=== PATIENT | male | born 1990 | race Caucasian/White ===

== ENCOUNTER 2018-11-12 18:31 | Inpatient (IN) | payer OTHER ==
[~2018-11-12] VITALS: Ht 182.9 cm; Wt 102.1 kg
--- NOTE | 2018-11-12 20:30 | NUR ---
Pre-admission assessment Patient is a 28-year old, male, seen at intake, AAOx4, no SOB but noted with anxiety, gross tremors, sweating and flushed skin. Patient's breath smells of alcohol. He verbalized that his last drink was at 1500 today but he already feels the withdrawal symptoms. Discussed with patient admission policies of the unit. Patient is coherent and able to respond to questions appropriately. He is on wheelchair because he ambulates with steady gait. Pt reports that he drinks Gin daily and uses Cocaine daily as well. Vital signs taken and as follows: QY=907/79, P=138, O2 sat on RA=97%, RR=20, T=98.7. Pt verbalized instructions and teachings regarding disposal of narcotic and other controlled home meds, unit protocols such as taking of vital signs Q4H and handling and disposal of contraband.
[2018-11-12] MEDS ORDERED: MIRALAX 17 GM POWD.PACK PO PRN (21:15)
[2018-11-12] MEDS ORDERED: LORAZEPAM 2 MG/1 ML VIAL IM PRN (21:15)
[2018-11-12] MEDS ORDERED: MAGNESIUM HYDROXIDE 30 ML LIQUID UDC PO PRN (21:15)
[2018-11-12] MEDS ORDERED: ONDANSETRON ODT 4 MG TAB.RAPDIS SL PRN (21:15)
[2018-11-12] MEDS ORDERED: THIAMINE HCL 200 MG/2 ML VIAL IM ONE (21:15)
[2018-11-12] MEDS ORDERED: ACETAMINOPHEN 325 MG TABLET PO PRN (21:15)
[2018-11-12] MEDS ORDERED: ONDANSETRON 4 MG/2 ML VIAL IM PRN (21:15)
[2018-11-12] MEDS ORDERED: LOPERAMIDE HCL 2 MG CAPSULE PO PRN ×2 (21:15)
[2018-11-12] MEDS ORDERED: DIAZEPAM 5 MG TABLET PO PRN (21:15)
[2018-11-12] MEDS ORDERED: diphenhydrAMINE 50 MG CAPSULE PO PRN (21:15)
[2018-11-12 21:30] VITALS: BP 143/79
--- NOTE | 2018-11-12 21:40 | NUR ---
Admission Note Patient is a 28-year-old, male, arrived to the floor at 2056 to be admitted for medically supervised withdrawal from Alcohol (Gin). Patient also verbalized using Cocaine daily as well history of drinking Opium tea (stopped 10/18/2018) and smoking Marijuana pens (stopped 10/18/2018). Per patient, he lives in an apartment by himself at [place], [place]. He is being supported by his parents. He stated that he has a sponsor and her name is Eugenia Hollis. The patient appears intoxicated, his breath smells of alcohol, with last drink at 1500 today. He is noted to have flushed skin, anxiety (pulse rate of 138), sweating and has gross tremors. He ambulates via wheelchair at the moment. He states that when he is withdrawing from Alcohol, he loses muscle coordination especially on the bilateral lower extremities. Patient is noted to be disheveled, unkempt and verbalized feeling depressed, Im unemployed, my girlfriend left me a year ago and I dont have anything going on with my life. He denies suicidal nor homicidal ideation. Pt is AAOx4, and when asked for his reason for detox, he verbalized: "My life is falling apart and I think I'm sick." Patient explained that he fell at his apartment a couple of days ago and he woke up with bruises on the right arm and purplish discoloration on the right eye. No open skin noted. Substance Use: 1) Gin-Patient started drinking at 15 due to peer influence. Per patient, his first drink was beer. For the past 1 week he has been drinking 1500 ml PO daily and before that he was drinking 375 ml PO daily x 2 years. Last drink was today (11/12/2018) at 1500 and he drank 1750 ml of Gin. 2) Opium Tea-Patient started ordering this substance online in 2013 and since then has been drinking this substance of unknown amount daily until he stopped on 10/18/2018. When asked on why he started using this substance, he stated, I dont really know. I think I heard from some friends and decided to try it too. When asked why he decided to stop, he said, No reason. One day I just decided to quit. 3) Cocaine-Patient started using in 2015 upon the influence of friends. Since he started using, he stated that he has been snorting (or via nasal insufflation) 1.75 gm daily. His last use today (11/12/2018) at 1200. He snorted 1.75 gm. 4) Marijuana Pen-Patient started using Marijuana at age 15 but has only started using Marijuana Pen in the last 4 years. He stated that he does not know the amount that he smokes daily. He stopped using on 10/18/2018. Patient denies using other substances besides the ones mentioned above. He stated that he was sober for 5 years between 2008 to 2013. He explained that his relapse in 2013 was due to personal and family issues. The patient states that withdrawal symptoms include anxiety, agitation, sweating, restlessness, gross tremors, hot flushes, chills, flushed skin, nausea, vomiting, loss of muscle coordination on the bilateral lower extremities, diarrhea and insomnia. He reports no known allergies and is on a regular diet. He wishes to be Full Code. Patient denies seizure history. Patient's major supporters for his goal to achieve sobriety are his parents, sponsor and closest friends. Patient also stated: ""I marvin feel like my body is shutting down. I don't want to wait until it's too late." Patient reports that he has been to two treatment centers in the past. The first was in [facility] and he finished the entire 1 year course between 2008 to 2009. Before this, he was in [facility] in [place], [place] and completed the 30-day course. He could not recall the exact year when he was in [facility]. Also, he could not recall any other treatment or detox centers that hes been to beside these two. Per patient, the reason why he wants to be in detox is because I cannot do it alone. I get these shakes and anxiety and I just go back to drinking. Vital signs are taken and as follows: BP: 143/79, HR: 138, RR: 20, SpO2: 96%, Temp: 98.4 and with no c/o pain. Pulse is palpable and regular. Respirations are even and unlabored. Lung sounds clear. Bowel sounds hypoactive x4 quadrants. Last bowel movement was on 11/11/2018. Per patient, he is often constipated and that bowel movement is about every 3 days. Skin is intact. Height is 60", 225 lbs per standing scale. He smokes "about half a park to 1 pack" of cigarettes daily. Patient does not recall the name of his PCP and he denies having a Psychiatrist. As for his psych history, patient stated that he was not diagnosed with Anxiety and Depression but he thinks that he has both. Patient denies any history of suicide attempt. Patient's medical history are Chiari Type 1 Malformation where he underwent surgeryPosterior Fossa Decompression at age 15, Appendicitis where he also underwent Appendectomy in 2017 and Multiple Blackouts with the last one earlier today when he woke up without recollection of what happened the previous night. Patient denies taking any home medications. Educated patient about plan of care including detox, group therapy, individual therapy, and discharge planning. Patient was also educated regarding unit rules and policies. Encouraged patient to be open and honest and verbalized support for patient in his recovery. Patient wants to go to a treatment center or [facility] after discharge. CIWA=15. MD made aware. Will continue to monitor. Addendum: 11/13/18 at 0555 by BALBINA PATINO RN Additional information: Another factor in patient's motivation to get sober is that he wants to finish college. He plans to enroll this year and complete his unfinished History course at [facility] [employer] [facility].
[2018-11-12 21:44] LABS: BASOPHILS # (AUTO) 0.1 K/uL (0.0-8.0); BASOPHILS % (AUTO) 0.8 % (0.0-2.0); HEMATOCRIT 51.8 % (36.7-47.1); HEMOGLOBIN 18.2 g/dL (12.5-16.3); LYMPHOCYTES # (AUTO) 2.3 K/uL (20.0-40.0); LYMPHOCYTES % (AUTO) 26.1 % (20.5-51.5); MEAN CORPUSCULAR HEMOGLOBIN 31.2 uug (23.8-33.4); MEAN CORPUSCULAR HGB CONC 35 g/dL (32.5-36.3); MEAN CORPUSCULAR VOLUME 88.9 fL (73.0-96.2); MONOCYTES # (AUTO) 0.9 K/uL (2.0-10.0); MONOCYTES % (AUTO) 10.1 % (0.0-11.0); NEUTROPHILS # (AUTO) 5.6 K/uL (1.8-8.9); PLATELET COUNT (AUTO) 286 K/uL (152-348); RED BLOOD CELL COUNT(AUTO) 5.82 MIL/uL (4.06-5.63)
[2018-11-12 21:52] LABS: BILIRUBIN,TOTAL 0.8 mg/dL (0.2-1.0); MAGNESIUM 2.2 mg/dL (1.8-2.4); POTASSIUM 3.3 mmol/L (3.5-5.1); TOTAL PROTEIN, SERUM 8.7 g/dL (6.4-8.2)
[2018-11-12] MEDS: DIAZEPAM 10 MG TABLET PO PRN (21:55)
[2018-11-12] MEDS: CLONIDINE HCL 0.1 MG TABLET PO PRN (21:55)
--- NOTE | 2018-11-12 21:57 | NUR ---
PRN Clonidine and Valium Patient is anxious, tremulous, irritable, flushed and sweaty. He c/o hot flushes. GS=607/91, ffina=688. CIWA=15. Administered Clonidine 0.1 mg PO PRN and Valium 10 mg PO PRN. Will reassess.
[2018-11-12] MEDS ORDERED: POTASSIUM CHLORIDE 20 MEQ TAB.PRT.SR PO ONE (22:15)
[2018-11-12 22:21] LABS: THYROID STIMULATING HORMONE 1.573 mIU/mL (0.358-3.740)
[2018-11-12 22:39] LABS: *AMPHETAMINE, URINE NEGATIVE (NEGATIVE); *BARBITURATE, URINE NEGATIVE (NEGATIVE); *CANNABINOID, URINE POSITIVE (NEGATIVE); *COCCAINE, URINE POSITIVE (NEGATIVE); *OPIATE, URINE NEGATIVE (NEGATIVE); *PHENCYCLIDINE SCREEN,URINE NEGATIVE (NEGATIVE)
--- NOTE | 2018-11-12 22:57 | NUR ---
Clonidine and Valium reassess Patient's pulse=97, he verbalized feeling less anxious but continues to have gross tremors and is flushed. CIWA=12.
[2018-11-12] MEDS ORDERED: TRAZODONE 50 MG TABLET PO ONE (23:00)
[2018-11-13] VITALS: BP 134/81
[2018-11-13] MEDS: DIAZEPAM 10 MG TABLET PO PRN (02:05)
--- NOTE | 2018-11-13 02:05 | NUR ---
PRN Valium Patient noted to be increasingly anxious, with gross tremors, sweats and flushed skin. CIWA=14. Administered Valium 10 mg PO PRN. Will reassess.
[2018-11-13] MEDS ORDERED: DIAZEPAM 10 MG TABLET PO PRN (02:30)
[2018-11-13] MEDS ORDERED: DIAZEPAM 10 MG TABLET PO ONE (03:00)
--- NOTE | 2018-11-13 03:05 | NUR ---
Valium reassess and one-time Valium Patient continues to feel anxious and his tremors have worsened. Patient verbalized that the Valium administered was not effective. He continues to be sweaty, flushed and observed to be restless and getting easily agitated. CIWA=18. Dr. Spivey contacted and he ordered one-time Valium 20 mg PO. To be administered. Addendum: 11/13/18 at 0318 by BALBINA PATINO RN Additional information: Patient's ocucg=[id number] Addendum: 11/13/18 at 0321 by BALBINA PATINO RN MD also ordered EKG.
[2018-11-13 04:00] VITALS: BP 118/63
--- NOTE | 2018-11-13 04:32 | NUR ---
PRN MOM Patient c/o feeling constipated. Last BM was 11/11/2018 in the morning. With hypoactive bowel sounds but patient verbalized having flatus. Administered MOM 30 ml. Will reassess.
--- NOTE | 2018-11-13 05:41 | NUR ---
MOM reassess No bowel movement at this time.
--- NOTE | 2018-11-13 06:30 | NUR ---
PRN Valium Patient is noted to be very anxious, with gross tremors, is sweating, flushed and verbalized, "I really don't feel good." Patient is also observed to be restless. Administered Valium 20 mg PO PRN. CIWA=18. Will reassess.
--- NOTE | 2018-11-13 07:19 | NUR ---
End of Shift Patient continues to be anxious, withdrawn and flushed. He c/o intermittent nausea and is noted to have gross tremors. He also verbalized experiencing episodes of hot flushes and chills. PRN Valium and Clonidine were administered. Last PRN Valium was administered at 0630. He is disheveled, unkempt and has strong body odor. Encouraged patient to take a shower this morning. No bowel movement until this time since administration of MOM. Fall, universal, seizure and safety prec in place. Call light within reach. Last CIWA=18 and has not slept since admission. Endorsed to AM shift nurse for continuity of care and to reassess effectiveness of PRN Valium administered at 0630.
--- NOTE | 2018-11-13 07:30 | NUR ---
Start of Shift Notes/Re-assessment: Valium Endorsement received from night nurse. Patient is a 28 year old male admitted for ETOH withdrawal who will be starting his 5-day Valium taper to manage his withdrawal symptoms. Per night nurse, patient received a total of 60 mg of Valium during the night, PRN Clonidine and MOM was given. Last CIWA 18 and has not slept. Patient was received in his room. He appears disheveled with worried facial expression, he is noted to be diaphoretic, with facial flushing and gross tremors noted to his BUE. Unable to hold a water bottle steadily. He is currently complaining of a 5/10 headache and is complaining of light sensitivity. CIWA 18 at this time. Valium was given at 0630 but ineffective. Educated patient on his current plan of care for the day and his medication regimen. Encouraged oral fluid intake and encouraged group participation to learn new skills to prevent relapse. All needs met and attended. Will continue to monitor closely.
[2018-11-13 08:00] VITALS: BP 156/92
[2018-11-13] MEDS: FOLIC ACID 1 MG TABLET PO SCH (08:15)
[2018-11-13] MEDS: THIAMINE HCL 100 MG TABLET PO SCH (08:15)
[2018-11-13] MEDS: IBUPROFEN 600 MG TABLET PO PRN ×2 (08:15→22:47)
[2018-11-13] MEDS: MULTIVITAMINS,THERAPEUTIC TABLET PO SCH (08:15)
[2018-11-13] MEDS: CLONIDINE HCL 0.1 MG TABLET PO PRN ×2 (08:15→14:02)
--- NOTE | 2018-11-13 08:15 | NUR ---
Clonidine 0.1mg/Motrin 600 mg PO: Patient noted with sweats, anxiety, agitation. BP 156/95, Pulse 117. He is noted with gross tremors to BUE and complains of 5/10 headache. Medicated patient with Clonidine 0.1mg PO and Motrin 600 mg PO as ordered. Will monitor for effectiveness.
[2018-11-13] MEDS: DIAZEPAM 10 MG TABLET PO SCH ×3 (08:16→20:53)
[2018-11-13] MEDS ORDERED: TUBERCULIN,PURIF.PROT.DERIV. 5 TU/0.1 ML TEST ID ONE (09:00)
[2018-11-13] MEDS ORDERED: 5 DAY TAPER VALIUM-SERENITY PROTOCOL PO PRN (09:00)
--- NOTE | 2018-11-13 09:15 | NUR ---
Re-assessment: Clonidine/Motrin Patient seen laying in bed. He continues to be tremulous, flushed with intermittent perspiration. He states "It helped a little bit." He rates his headache a 2 out of 10 at this time. He says "I think I'm going to try to sleep for a bit." PRN Clonidine and Motrin effective.
[2018-11-13] MEDS: HYDROXYZINE PAMOATE 25 MG CAPSULE PO PRN (10:33)
--- NOTE | 2018-11-13 10:33 | NUR ---
Vistaril 50 mg PO given: Patient noted with complain of anxiety. He is noted to be restless and complains of not being able to sleep. Caffeine intake discouraged. Non-pharmacological interventions provided but ineffective. Medicated patient with Vistaril 50 mg PO as ordered. Will monitor for effectiveness.
--- NOTE | 2018-11-13 11:33 | NUR ---
Re-assessment: Vistaril Patient verbalizes mild relief from anxiety. PRN Vistaril effective.
[2018-11-13 12:00] VITALS: BP 129/70
--- NOTE | 2018-11-13 12:22 | NUR ---
Therapist prompted client to attend all group therapy sessions.
--- NOTE | 2018-11-13 14:02 | NUR ---
Clonidine 0.1mg PO given: Patient noted with complains of increased anxiety, tremulous on BUE and complains of intermittent perspiration. He is noted to appear flushed. Medicated patient with Clonidine 0.1mg PO as ordered. BP 129/60, Pulse 93. Will monitor for effectiveness.
--- NOTE | 2018-11-13 15:02 | NUR ---
Re-assessment: Clonidine Patient verbalizes no relief from anxiety. He states "It doesn't work. Why can't I get more Valium?" Educated patient on the scheduled Valium doses for today. He complains of increased anxiety and not being able to sleep during the day. Will notify MD Pop (psych).
--- NOTE | 2018-11-13 15:15 | NUR ---
Psych Communication: Dr. Pop made aware of patient's behavior and complains of anxiety and inability to sleep. New orders received. Orders noted and carried out.
[2018-11-13] MEDS: QUETIAPINE FUMARATE 25 MG TABLET PO PRN (15:31)
--- NOTE | 2018-11-13 15:31 | NUR ---
Seroquel 25 mg PO given: Patient noted with complain of increased anxiety and appears agitated. Non-pharmacological interventions provided but ineffective. Medicated patient with Seroquel 25 mg PO as ordered. Will monitor for effectiveness.
[2018-11-13 16:00] VITALS: BP 141/70
--- NOTE | 2018-11-13 16:31 | NUR ---
Re-assessment: Seroquel Patient verbalizes mild relief from anxiety and agitation. PRN Seroquel was effective.
--- NOTE | 2018-11-13 19:05 | NUR ---
End of Shift Notes: Patient initiated his 5-day Valium taper today as ordered. No adverse reactions noted. VS monitored closely. No significant abnormalities noted. Withdrawal symptoms were closely monitored. Initial CIWA 18, patient presented with gross tremors, anxiety, agitation, restlessness, diaphoresis, anhedonia, worried facial expression, light sensitivity and generalized discomfort. Medicated patient with Clonidine and Motrin at 0815, Vistaril 50 mg at 1033, Clonidine at 1402 and Seroquel 25 mg PO at 1531 with help after 1 hour. Last CIWA 14. Patient verbalizes that Valium has been effective in reducing his withdrawal symptoms. Patient presents with med seeking behavior. Asking for more Valium than currently ordered. He appears to be fixated on how much Valium he is getting and states I can get a total of 100 mg of Valium and Ill be OK. Education provided and discouraged med seeking behavior. Unable to participate in group and activities due to his withdrawal symptoms. Appetite fair. All needs met and attended. Will continue to monitor closely.
--- NOTE | 2018-11-13 19:30 | NUR ---
START OF SHIFT Received patient awake, alert, and oriented sitting up in bed watching TV. Patient is a 28 year old male admitted for medically supervised detox from ETOH with secondary diagnoses of Chiari Type 1 malformation, posterior fossa decompression, appendicitis with appendectomy in 2017, anxiety and depression. Patient denies a seizure history, but admits to having blackouts. Per endorsement, patient started on a 5 day Valium taper this morning. Patient was given Clonidine, Motrin, Vistaril, and Seroquel by the AM shift nurse. Upon assessment, patient stated he was feeling anxious, had a migraine, and nauseous. Patient is also noted to be diaphoretic and with a runny nose and productive cough. Last CIWA score is 14. HOB and bilateral side rails raised. All safety measures in place. Bed is in a low position with wheels locked. Call light is functional and within reach. Will continue to monitor.
[2018-11-13 20:18] VITALS: BP 140/94
[2018-11-13] MEDS ORDERED: QUETIAPINE FUMARATE 25 MG TABLET PO SCH (21:00)
--- NOTE | 2018-11-13 22:47 | NUR ---
PRN Motrin Patient is presenting with a headache of pain 05/13. Administered PRN Motrin 600mg, pt tolerated well and education pt to increase fluids. Safety measures in place and will continue to monitor.
--- NOTE | 2018-11-13 23:47 | NUR ---
PRN MOTRIN REASSESSMENT Patient stated his headache pain decreased to a 3 out of 10 which is manageable for him. PRN Motrin noted to be effective. Will continue to monitor.
[2018-11-14] VITALS: BP 145/100
[2018-11-14] MEDS: HYDROXYZINE PAMOATE 25 MG CAPSULE PO PRN ×4 (00:32→23:16)
--- NOTE | 2018-11-14 00:32 | NUR ---
PRN VISTARIL ADMINISTRATION Patient is noted with significant levels of generalized anxiety. PRN Vistaril 50 mg given per MD orders and patient request. Will continue to monitor and assess for effectiveness.
--- NOTE | 2018-11-14 01:32 | NUR ---
PRN VISTARIL REASSESSMENT Patient is noted lying in bed with eyes closed and even, unlabored respirations. No reports or signs/symptoms of anxiety noted. PRN med Vistaril noted to be effective. Will continue to monitor.
--- NOTE | 2018-11-14 04:00 | NUR ---
VITAL SIGNS REFUSED Patient noted lying in bed with eyes closed and even, unlabored respirations. Vital signs refused. HOB flat and bilateral side rails raised. Call light is functional and within reach. All safety measures in place. Will continue to monitor.
[2018-11-14 07:06] LABS: HEPATITIS B SURFACE AG Negative (Negative)
[2018-11-14 07:07] LABS: BASOPHILS % (AUTO) 0.5 % (0.0-2.0); EOSINOPHILS # (AUTO) 0.1 K/uL (0.0-0.7); EOSINOPHILS % (AUTO) 1.1 % (0.0-7.0); HEMATOCRIT 43.9 % (36.7-47.1); HEMOGLOBIN 15.3 g/dL (12.5-16.3); LYMPHOCYTES % (AUTO) 35.1 % (20.5-51.5); MEAN CORPUSCULAR HEMOGLOBIN 31.3 uug (23.8-33.4); MEAN CORPUSCULAR HGB CONC 35 g/dL (32.5-36.3); MONOCYTES # (AUTO) 0.4 K/uL (2.0-10.0); MONOCYTES % (AUTO) 7.6 % (0.0-11.0); NEUTROPHILS # (AUTO) 3.1 K/uL (1.8-8.9); NEUTROPHILS % (AUTO) 55.7 % (38.5-71.5); PLATELET COUNT (AUTO) 149 K/uL (152-348); RED BLOOD CELL COUNT(AUTO) 4.88 MIL/uL (4.06-5.63); WHITE BLOOD COUNT (AUTO) 5.6 K/uL (3.6-10.2)
[2018-11-14 07:15] LABS: BILIRUBIN,TOTAL 0.8 mg/dL (0.2-1.0); CREATININE 0.9 mg/dL (0.6-1.3); MAGNESIUM 2.4 mg/dL (1.8-2.4); POTASSIUM 3.2 mmol/L (3.5-5.1); TOTAL PROTEIN, SERUM 6.9 g/dL (6.4-8.2)
--- NOTE | 2018-11-14 07:20 | NUR ---
END OF SHIFT Patient is noted lying in bed with eyes closed and even, unlabored respirations. Patient is a 28 year old male admitted for medically supervised detox from ETOH with secondary diagnoses of Chiari Type 1 malformation, posterior fossa decompression, appendicitis with appendectomy in 2017, anxiety and depression. During the shift, the patient reported having a headache at a level of 7 out of 10 and anxiety. Patient was given PRN meds Motrin and Vistaril and were effective. Patient slept for 7 hours during the night with a few episodes of difficulty staying asleep. Last CIWA score is 12 taken at 0000. HOB is flat and bilateral side rails raised. Call light is functional and within reach. All safety measures are in place. Bed is in a low position with wheels locked. Endorsed to oncoming AM nurse.
--- NOTE | 2018-11-14 07:30 | NUR ---
START OF SHIFT Pt 28 y/o male admitted for etoh withdrawal. Pt received in room on bed awake watching television. Pt alert and oriented to name, place, and time. Perrla. Skin warm and moist to touch. Respirations even and unlabored. Anxious and restless. Pressured speech. Fidgety. Bilateral hand tremors noted. Irritable. Appears disheveled. Clothes scattered throughout the room. Encouraged to maintain hygiene. It was reported that pt slept for 7 hours last night. Pt is on a 5 day valium taper and is on day 1. Bed on lowest position with side rails x2 up for safety. Call light within reach.
[2018-11-14 08:00] VITALS: BP 168/98
[2018-11-14] MEDS: THIAMINE HCL 100 MG TABLET PO SCH (08:31)
[2018-11-14] MEDS: MULTIVITAMINS,THERAPEUTIC TABLET PO SCH (08:32)
[2018-11-14] MEDS: FOLIC ACID 1 MG TABLET PO SCH (08:32)
[2018-11-14] MEDS: CLONIDINE HCL 0.1 MG TABLET PO PRN (08:32)
[2018-11-14] MEDS: DIAZEPAM 5 MG TABLET PO SCH ×4 (08:32→21:09)
--- NOTE | 2018-11-14 08:35 | NUR ---
PRN CATAPRES VISTARIL bp= 168/98. Catapres po prn per MD order given. Anxious and restless. Vistaril po prn per MD order given.
--- NOTE | 2018-11-14 09:35 | NUR ---
PRN CATAPRES VISTARIL EVAL bp= 140/82 Pt states medication effective.
--- NOTE | 2018-11-14 09:55 | NUR ---
Therapist prompted client to attend group therapy.
[2018-11-14] MEDS ORDERED: POTASSIUM CHLORIDE 20 MEQ TAB.PRT.SR PO ONE (11:30)
[2018-11-14 12:00] VITALS: BP 120/76
[2018-11-14 16:00] VITALS: BP 118/80
--- NOTE | 2018-11-14 16:49 | NUR ---
PRN VISTARIL Pt states feels anxious. Vistaril po prn per MD order given.
--- NOTE | 2018-11-14 17:49 | NUR ---
PRN VISTARIL EVAL Pt states medication effective.
[2018-11-14 18:17] LABS: CREATININE 1.1 mg/dL (0.6-1.3); POTASSIUM 3.5 mmol/L (3.5-5.1)
--- NOTE | 2018-11-14 19:16 | NUR ---
END OF SHIFT Pt 28 y/o male admitted for alcohol withdrawal. Pt alert and oriented to name, place, and time. Perrla. Skin warm and moist to touch. Respirations even and unlabored. Appears disheveled. Food wrappings scattered throughout the room. Encouraged to maintain hygiene. Anxious and restless. Irritable. Pressured speech. Fidgety. Complaints of generalized discomfort. Pt attended group activity today. Pt is on a 5 day valium taper and is on day 2. Bed on lowest position with side rails x2 up for safety. Call light within reach.
--- NOTE | 2018-11-14 19:30 | NUR ---
START OF SHIFT Received patient awake, alert, and oriented x4 attending group therapy. Patient is a 28 year old male admitted for medically supervised detox from ETOH with secondary diagnoses of Chiari Type 1 malformation, posterior fossa decompression, appendicitis with appendectomy in 2017, anxiety and depression. Patient denies a seizure history, but admits to having blackouts. Per endorsement, patient reported having anxiety and was noted to be hypertensive at some time during the shift and was given Vistaril 2 times and Clonidine. These PRNs were noted to be effective. Potassium was replaced. Upon assessment, patient was noted with anxiety, tremors, and a 7 out of 10 headache. PRN pain med to be given. Last CIWA score is 10. Bed is in a low position with wheels locked. Call light is functional and within reach. All safety measures in place. Will continue to monitor.
[2018-11-14 20:00] VITALS: BP 148/102
[2018-11-14] MEDS: QUETIAPINE FUMARATE 25 MG TABLET PO SCH (21:09)
[2018-11-14] MEDS: IBUPROFEN 600 MG TABLET PO PRN (21:09)
--- NOTE | 2018-11-14 21:09 | NUR ---
PRN MOTRIN ADMINISTRATION Patient is noted with a 7 out of 10 headache originating from the back of his head. PRN Motrin given per MD orders and patient request. Will continue to monitor and reassess for effectiveness.
--- NOTE | 2018-11-14 22:09 | NUR ---
PRN MOTRIN REASSESSMENT Patient reports a significant decrease in pain levels r/t headache and pain is now at a 2 out of 10. PRN Motrin is noted to be effective. Will continue to monitor.
--- NOTE | 2018-11-14 23:16 | NUR ---
PRN VISTARIL ADMINISTRATION Patient is noted with anxiety, restlessness, difficulty sleeping, and fine tremors. PRN Vistaril 50 mg given per MD orders and patient request. Will continue to monitor and assess for effectiveness.
[2018-11-15] VITALS: BP 138/88
--- NOTE | 2018-11-15 00:16 | NUR ---
PRN VISTARIL REASSESSMENT Patient reports having decreased levels of anxiety, but not complete relief. PRN Vistaril is noted to be effective. Will continue to monitor.
[2018-11-15] MEDS: MAG HYDROX/AL HYDROX/SIMETH 30 ML LIQUID UDC PO PRN ×2 (02:58→20:03)
--- NOTE | 2018-11-15 02:58 | NUR ---
PRN MAALOX ADMINISTRATION Patient reports having heartburn and requests PRN med. PRN Maalox 30 mL given per MD orders and patient request. Will continue to monitor and assess for effectiveness.
--- NOTE | 2018-11-15 03:58 | NUR ---
PRN MAALOX REASSESSMENT Patient states he is experiencing relief from symptoms of heartburn and indigestion. Patient encouraged to increase fluid intake. PRN Maalox noted to be effective. Will continue to monitor.
[2018-11-15 04:00] VITALS: BP 153/87
[2018-11-15] MEDS: CLONIDINE HCL 0.1 MG TABLET PO PRN ×3 (04:23→23:25)
--- NOTE | 2018-11-15 04:23 | NUR ---
PRN CLONIDINE ADMINISTRATION Patient noted with anxiety, agitation, and intermittent perspiration. BP is 153/87. PRN Clonidine 0.1 mg given per MD orders and patient request. Will continue to monitor and assess for effectiveness.
[2018-11-15] MEDS: HYDROXYZINE PAMOATE 25 MG CAPSULE PO PRN ×3 (05:21→21:44)
--- NOTE | 2018-11-15 05:21 | NUR ---
PRN VISTARIL ADMINISTRATION Patient reported having continued feelings of anxiety. PRN Vistaril 50 mg given per MD orders and patient request. Will continue to monitor and assess for effectiveness.
--- NOTE | 2018-11-15 05:23 | NUR ---
PRN CLONIDINE REASSESSMENT Patient is noted with decreased anxiety. BP is 138/87 HR at 85 bpm. PRN Clonidine noted to be effective. Encouraged patient to attempt to sleep. Will continue to monitor.
--- NOTE | 2018-11-15 07:30 | NUR ---
START OF SHIFT Pt 28 y/o male admitted for etoh withdrawal. Pt received in room on awake watching television. Pt alert and oriented to name, place, and time. Perrla. Skin warm and moist to touch. Respirations even and unlabored. Appears disheveled. Clothes scattered throughout the room. Encouraged to maintain hygiene. Anxious and restless.States was not able to sleep well last night. It was reported that pt slept for1.5 hours last night. Pressured speech. Irritable. Bilateral hand tremors noted. Pt is on a 5 day valium taper and is on day 3. Bed on lowest position with side rails x2 up for safety. Call light within reach.
[2018-11-15 08:00] VITALS: BP 152/100
[2018-11-15 08:06] LABS: BILIRUBIN,TOTAL 0.5 mg/dL (0.2-1.0); CREATININE 0.9 mg/dL (0.6-1.3); POTASSIUM 3.6 mmol/L (3.5-5.1); TOTAL PROTEIN, SERUM 6.8 g/dL (6.4-8.2)
[2018-11-15] MEDS: MULTIVITAMINS,THERAPEUTIC TABLET PO SCH (08:32)
[2018-11-15] MEDS: THIAMINE HCL 100 MG TABLET PO SCH (08:32)
[2018-11-15] MEDS: FOLIC ACID 1 MG TABLET PO SCH (08:32)
[2018-11-15] MEDS: DIAZEPAM 5 MG TABLET PO SCH ×3 (08:32→20:04)
[2018-11-15] MEDS: IBUPROFEN 600 MG TABLET PO PRN ×2 (10:52→20:04)
--- NOTE | 2018-11-15 10:54 | NUR ---
PRN MOTRIN Complaints of headach 04/13. Motrin po prn per MD order given.
--- NOTE | 2018-11-15 11:54 | NUR ---
PRN ESTERRIN ORQUIDEAAL Pt states medication effective, headache 3/10.
[2018-11-15 12:00] VITALS: BP 150/98
--- NOTE | 2018-11-15 12:15 | NUR ---
PRN VISTARIL States very anxious. Vistaril po prn per MD order given.
--- NOTE | 2018-11-15 13:15 | NUR ---
PRN VISTARIL EVAL Pt states medication effective.
[2018-11-15] MEDS: GABAPENTIN 300 MG CAPSULE PO SCH ×2 (14:32→16:38)
[2018-11-15 16:00] VITALS: BP 154/100
--- NOTE | 2018-11-15 17:21 | NUR ---
PRN CATAPRES bp= 152/102. Catapres po prn per MD order given.
--- NOTE | 2018-11-15 18:21 | NUR ---
PRN ADRIA STOREY bp= 148/96
--- NOTE | 2018-11-15 18:49 | NUR ---
END OF SHIFT Pt 28 y/o male admitted for etoh withdrawal. Pt alert and oriented to name, place, and time. Perrla. Skin warm and moist to touch. Respirations even and unlabored. Appears disheveled. Empty drink bottles scattered throughout the room. Encouraged to maintain hygiene. Last ciwa=12 @1600. Anxious and restless. Pressured speech. Bilateral hand tremors noted. Period of irritability. Observed mostly in recreational room today. Pt medication compliant. Pt is on a 5 day valium taper and is on day 3. Bed on lowest position with side rails x2 up for safety. Call light within reach.
--- NOTE | 2018-11-15 19:30 | NUR ---
Start of shift note Received report from day shift nurse. Patient is a 28 year old male admitted for ETOH withdrawal. Patient is on 3rd day of his 5 day Valium taper. Patient was given PRN Motrin and Vistaril. PRN Clonidine given for BP 152/102 effective BP went down to 148/96. Last CIWA 12. Patient started on Neurontin. Patient alert and oriented x 4. Patient present with flat affect and depressed mood. Patient reports anxiety, sweating, restless legs and headache. Safety measures in place. Will continue to monitor.
[2018-11-15 20:00] VITALS: BP 128/82
--- NOTE | 2018-11-15 20:03 | NUR ---
PRN Mylanta and Motrin administration Patient c/o heartburn and headache. Will monitor for effectiveness
[2018-11-15] MEDS: QUETIAPINE FUMARATE 25 MG TABLET PO SCH (20:04)
--- NOTE | 2018-11-15 21:03 | NUR ---
PRN Mylanta and Motrin re-assessment Patient states medication are helpful and effective. Heartburn subsided and pain is lessened
--- NOTE | 2018-11-15 21:44 | NUR ---
PRN Vistaril administration Patient reports anxiety. Will monitor for effectiveness
--- NOTE | 2018-11-15 22:33 | NUR ---
PRN Vistaril re-assessment Patient states Vistaril is mildly effective. Patient is still anxious, restless and difficulty falling asleep.
--- NOTE | 2018-11-15 22:35 | NUR ---
PRN Clonidine and one time Neurontin administration Patient reports increased anxiety, difficulty falling asleep and restless legs.
[2018-11-15] MEDS ORDERED: GABAPENTIN 300 MG CAPSULE PO ONE (23:00)
--- NOTE | 2018-11-15 23:25 | NUR ---
PRN Clonidine and Neurontin re-assessment Patient lying in bed with eyes closed. Respiration even and unlabored. Neurontin unable to re-assess
[2018-11-16] VITALS: BP 148/86
[2018-11-16 04:00] VITALS: BP 132/78
--- NOTE | 2018-11-16 07:26 | NUR ---
End of shift note Monitored patient throughout shift. Patient alert and oriented x 4. Patient reported anxiety, sweating, restless legs and headache. Patient had difficulty falling asleep . Scheduled medication and Valium taper given as ordered. Patient was given PRN Motrin, Mylanta, Vistaril and Clonidine given. Patient was given one time Neurontin for restless legs. Patient compliant with medication and treatment plan. Safety measures in place. Will continue to monitor. Patient slept 7 hours. Fluid intake 910 ml. Voided x 2. BM x 1.
--- NOTE | 2018-11-16 07:35 | NUR ---
START OF SHIFT Endorse rcvd from ongoing nurse, client approached the nurse station, he is fully ambulatory, a/o x 4, he appears disheveled, skin discoloration on L upper eyelid, client stated, "I must have fallen, before I came here and gotten the black eye." He denies any pain or blurred vision. Client presents with anxious mood, flat affect, tremors felt, and difficulty concentrating. Client reports anxiety, sweating, restless legs, headache, and difficulty falling asleep. Encouraged client to attend group therapy to learn skills to maintain sober. PRN Clonidine 0.1mg Po for agitation, Vistaril 50mg PO for anxiety, Maalox 30mL for heartburn, Motrin 600mg PO for HURD, noted effective. Client slept 7 hrs. Client is on 4rd of 5 day Valium taper. Last CIWA 12 @ 1999. [place] precautions. Will continue to monitor.
[2018-11-16 08:10] VITALS: BP 151/101
[2018-11-16] MEDS: FOLIC ACID 1 MG TABLET PO SCH (08:10)
[2018-11-16] MEDS: DIAZEPAM 5 MG TABLET PO SCH ×2 (08:10→21:14)
[2018-11-16] MEDS: CLONIDINE HCL 0.1 MG TABLET PO PRN ×2 (08:10→21:15)
[2018-11-16] MEDS: MULTIVITAMINS,THERAPEUTIC TABLET PO SCH (08:10)
[2018-11-16] MEDS: GABAPENTIN 300 MG CAPSULE PO SCH ×3 (08:10→16:39)
[2018-11-16] MEDS: THIAMINE HCL 100 MG TABLET PO SCH (08:10)
--- NOTE | 2018-11-16 08:10 | NUR ---
CIWA 13 & PRN Clonidine 0.1mg PO for BP 151/101 Client continues to presents with anxious mood, flat affect, tremors felt, and difficulty concentrating. Client reports anxiety, sweating, restless legs, headache, and difficulty falling asleep. Schedule Valium 5mg PO. Call light within reach. Will continue to monitor.
--- NOTE | 2018-11-16 09:10 | NUR ---
Reassess PRN Clonidine 0.1mg, decreased BP 131/89
[2018-11-16 12:10] VITALS: BP 146/87
--- NOTE | 2018-11-16 12:10 | NUR ---
COWS 13 Client continues to presents with anxiety, tremors felt, irritability, stomach cramps, restless legs, and fatigue. Schedule Gabapentin 300mg PO administered. Will continue to monitor. Call light within reach
--- NOTE | 2018-11-16 12:37 | NUR ---
Therapist prompted client to attend all daily group therapy sessions.
[2018-11-16 16:30] VITALS: BP 157/103
--- NOTE | 2018-11-16 16:39 | NUR ---
CIWA 15 Client continue to present with anxiety, mb increased BP 157/103, P 96, client decline Vistaril 50mg and/or Clonidine 0.1mg PO stating, "I don't like to take Vistaril because after I take it, I get a runny nose, I will take the Clonidine at night time." He reports agitation, irritability, restless legs, flushed facial skin, and difficulty concentrating, client denies any headache. Gabapentin 300mg PO administered. Deep breathing techniques demonstrated, client returned demonstration. Call light within reach. CN notified.
--- NOTE | 2018-11-16 19:00 | NUR ---
START OF SHIFT Received 28 year old male patient admitted to [facility] on 11/12/18 for medically supervised ETOH withdrawal. Pt currently on day 4 of a 5 day Valium taper, which he is tolerating well. Last CIWA 15 @1600. Pt received PRN Clonidine on day shift. Pt is awake, alert, and participating in group. Bed is low, side rails up x 2, and call garg in reach. Will continue to monitor.
--- NOTE | 2018-11-16 19:28 | NUR ---
END OF SHIFT Endorse client to incoming nurse, client is in room, a/o x 4, client continues to presents with anxiety, tremors felt, irritability, stomach cramps, restless legs, and fatigue. Client denies SI/HI. Client is on 3rd of 5 day Valium taper. Last CIWA 15 @ 1600. PRN medications administered and noted per protocol. Client is compliant with group therapy. Consumes 100% of meals. Adequate PO fluid intake 2250mL, void x 6, stool x 2. Call light within reach.
[2018-11-16 20:00] VITALS: BP 163/100
--- NOTE | 2018-11-16 20:00 | NUR ---
CIWA 13 / Medication refusal Pt is anxious, agitated, tremors, clammy, and c/o restless legs. CIWA 13 BP 163/100 HR 115 Pt refused a PRN Clonidine, says he will take it before bed because it helps him sleep.
[2018-11-16] MEDS: QUETIAPINE FUMARATE 25 MG TABLET PO SCH (21:14)
[2018-11-16] MEDS: GABAPENTIN 300 MG CAPSULE PO PRN (21:14)
--- NOTE | 2018-11-16 21:15 | NUR ---
PRN Clonidine/Neurontin Pt ready for bed and requested the Clonidine and Neurontin. Given per order. Pt requested to have BP rechecked in 1/2 hour. He stated, " I will be asleep and I don't want you to wake me up".
--- NOTE | 2018-11-16 21:45 | NUR ---
Reassess PRN Clonidine per pt request BP 150/99 HR 101
--- NOTE | 2018-11-16 22:15 | NUR ---
Reassess PRN Neurontin Medication effective. Pt resting with eyes closed. Respirations are even and unlabored. Bed is low, side rails up x 2, and call garg in reach. Will continue to monitor.
--- NOTE | 2018-11-17 | NUR ---
CIWA Deferred/ Vitals refused Pt resting in bed with eyes closed. Respirations are even and unlabored. Bed is low, side rails up x 2, and call garg in reach. Continue to monitor.
[2018-11-17 05:00] VITALS: BP 145/101
[2018-11-17] MEDS: CLONIDINE HCL 0.1 MG TABLET PO PRN ×3 (05:00→21:57)
--- NOTE | 2018-11-17 05:00 | NUR ---
CIWA 12/ PRN Clonidine Pt awakened with anxiety, agitation, and restless. CIWA 12 BP 145/101, HR 98 Clonidine given per order. Will monitor effect.
[2018-11-17] MEDS: HYDROXYZINE PAMOATE 25 MG CAPSULE PO PRN ×2 (05:43→20:46)
--- NOTE | 2018-11-17 05:43 | NUR ---
PRN Vistaril / Reassess PRN Clonidine. Pt c/o increasing anxiety and restlessness, BP 145/103, HR 107. Vistaril given per order. Will monitor effect.
--- NOTE | 2018-11-17 06:43 | NUR ---
END OF SHIFT Endorsing 28 year old male patient admitted to [facility] on 11/12/18 for medically supervised ETOH withdrawal. Pt currently on day 5 of a 5 day Valium taper, which he is tolerating well. Last CIWA 12 @0500. Pt received PRN Clonidine x2, Neurontin, and Vistaril on table games shift manager. BP 163/100 HR 115 @2115. Reassessed BP 150/99 HR 101 @2145. BP 145/101, HR 98 @ 0500. Reassessed BP 145/103, HR 107 @0545. Pt resting in bed with eyes closed. Respirations are even and unlabored. Bed is low, side rails up x 2, and call garg in reach. PO intake 1250 ml, voided x 2, BM x 0 , and slept 7 hours.
[2018-11-17 06:54] LABS: BASOPHILS # (AUTO) 0.1 K/uL (0.0-8.0); EOSINOPHILS # (AUTO) 0.2 K/uL (0.0-0.7); LYMPHOCYTES # (AUTO) 1.6 K/uL (20.0-40.0); NEUTROPHILS # (AUTO) 7.6 K/uL (1.8-8.9)
[2018-11-17 07:20] LABS: BILIRUBIN,DIRECT 0.1 mg/dL (0.0-0.2); BILIRUBIN,TOTAL 0.3 mg/dL (0.2-1.0); TOTAL PROTEIN, SERUM 7.1 g/dL (6.4-8.2)
--- NOTE | 2018-11-17 07:30 | NUR ---
START OF SHIFT Received report from ornamental ironworker nurse. Pt is in his room getting ready for the day. He is a 28 yo male admitted to [facility] on 11/12 for ETOH withdrawal. He is A&O and ambulatory with a steady gait. NKA full code, regular diet. Today is day 4 of a 5 day Valium taper. Respirations even and unlabored, skin is warm and moist. He reports anxiety and restless legs. He is observed with facial flushing and tremors. His appearance is disheveled and he has poor eye contact. Last CIWA was 12. He was administered PRN Vistaril, Gabapentin, and Clonidine x2 on ornamental ironworker. He slept for 7 hours. Safety measures in place. Addendum: 11/17/18 at 1817 by LISANDRO NOVOA RN Correction: today is the last day of a 5 day valium taper.
[2018-11-17 07:37] LABS: BASOPHILS % (AUTO) 0.6 % (0.0-2.0); EOSINOPHILS % (AUTO) 1.7 % (0.0-7.0); HEMATOCRIT 43.8 % (36.7-47.1); HEMOGLOBIN 15.3 g/dL (12.5-16.3); LYMPHOCYTES % (AUTO) 15.4 % (20.5-51.5); MEAN CORPUSCULAR HEMOGLOBIN 31.6 uug (23.8-33.4); MEAN CORPUSCULAR HGB CONC 35 g/dL (32.5-36.3); MEAN CORPUSCULAR VOLUME 90.6 fL (73.0-96.2); MONOCYTES # (AUTO) 0.9 K/uL (2.0-10.0); MONOCYTES % (AUTO) 8.3 % (0.0-11.0); PLATELET COUNT (AUTO) 118 K/uL (152-348); RED BLOOD CELL COUNT(AUTO) 4.84 MIL/uL (4.06-5.63)
[2018-11-17 07:38] LABS: WHITE BLOOD COUNT (AUTO) 10.3 K/uL (3.6-10.2)
[2018-11-17 08:00] VITALS: BP 151/89
[2018-11-17] MEDS: THIAMINE HCL 100 MG TABLET PO SCH (08:22)
[2018-11-17] MEDS: MULTIVITAMINS,THERAPEUTIC TABLET PO SCH (08:22)
[2018-11-17] MEDS: GABAPENTIN 300 MG CAPSULE PO SCH ×3 (08:22→17:22)
[2018-11-17] MEDS: FOLIC ACID 1 MG TABLET PO SCH (08:22)
[2018-11-17] MEDS ORDERED: DIAZEPAM 5 MG TABLET PO SCH (09:00)
[2018-11-17 12:00] VITALS: BP 149/88
--- NOTE | 2018-11-17 12:30 | NUR ---
PRN Clonidine Pt reports feeling anxious. B/P 149/88. CIWA score 10. PRN Clonidine administered.
[2018-11-17] MEDS ORDERED: QUET25TA PO (13:04)
[2018-11-17] MEDS ORDERED: GABA-534 PO ×2 (13:04)
[2018-11-17] MEDS ORDERED: CLON0.1T14 PO (13:04)
--- NOTE | 2018-11-17 13:30 | NUR ---
PRN Clonidine reassessment PRN Clonidine effective. Pt reports feeling more relaxed and less anxious.
[2018-11-17 16:30] VITALS: BP 153/95
--- NOTE | 2018-11-17 19:23 | NUR ---
END OF SHIFT Report provided to cnc machinist 2nd shift nurse. Pt is attending a group meeting. He is a 28 yo male admitted to [facility] on 11/12 for ETOH withdrawal. He is A&O and ambulatory with a steady gait. NKA full code, regular diet. Today is the last day of a 5 day Valium taper. He was having anxiety and restless legs throughout the day. His B/P is slightly elevated. Dr. Sipvey made aware of B/P and labs. PRN Clonidine administered x1 for anxiety. He attended all group meetings and is compliant with treatment. Last CIWA was 8 and he drank 3458mL of fluid.
--- NOTE | 2018-11-17 19:40 | NUR ---
START OF SHIFT NOTE Rcvd report from outgoing nurse. Pt is a 28 y/o male A/O to person, place, time, and purpose. Pt was admitted for medically supervised withdrawal from ETOH. Pt completed a 5 day Valium taper and is scheduled for discharge on 11/18/18. Pt has been presenting w/ anxiety, tremors, restlessness, and flushing. Pt rcvd PRN Clonidine and was noted effective by outgoing nurse. Last CIWA 8 @ 1600. Call light is within reach. Pt will continue to be monitored and needs met.
[2018-11-17] MEDS: QUETIAPINE FUMARATE 25 MG TABLET PO PRN (20:46)
--- NOTE | 2018-11-17 20:46 | NUR ---
PRN SEROQUEL AND VISTARIL ADMINISTRATION Seroquel 25mg for agitation and Vistaril 50mg for anxiety were given. Will reassess pt in 1hr.
[2018-11-17 20:47] VITALS: BP 151/101
--- NOTE | 2018-11-17 21:46 | NUR ---
PRN SEROQUEL AND VISTARIL REASSESSMENT Pt states relief from anxiety and is sitting watching TV. Pt states they feel "calmer and ready to fall asleep". Will continue to monitor pt.
[2018-11-17] MEDS: QUETIAPINE FUMARATE 25 MG TABLET PO SCH (21:57)
[2018-11-17] MEDS: GABAPENTIN 300 MG CAPSULE PO PRN (21:57)
--- NOTE | 2018-11-17 21:57 | NUR ---
PRN CLONIDINE AND GABAPENTIN ADMINISTRATION Clonidine 0.1mg for anxiety and Gabapentin for restless legs. Will reassess pt in 1hr.
--- NOTE | 2018-11-17 22:57 | NUR ---
PRN CLONIDINE AND GABAPENTIN REASSESSMENT Pt is in bed w/ his eyes closed. Pt's respirations are unlabored and even.
--- NOTE | 2018-11-18 | NUR ---
CIWA DEFERRED AND V/S REFUSED Pt is in bed w/ his eyes closed. Pt's respirations are unlabored and even.
[2018-11-18] MEDS: CLONIDINE HCL 0.1 MG TABLET PO PRN ×2 (05:18→08:22)
[2018-11-18] MEDS: QUETIAPINE FUMARATE 25 MG TABLET PO PRN (05:18)
--- NOTE | 2018-11-18 05:18 | NUR ---
PRN CLONIDINE AND SEROQUEL ADMINISTRATION Clonidine 0.1mg for anxiety and Seroquel 25mg for agitation were given. Pt c/o anxiety about leaving today and going to treatment. Will reassess pt in 1hr.
--- NOTE | 2018-11-18 07:07 | NUR ---
END OF SHIFT NOTE Endorsed pt to oncoming nurse. Pt is a 28 y/o male A/O to person, place, time, and purpose. Pt was admitted for medically supervised withdrawal from ETOH. Pt completed a 5 day Valium taper and is scheduled for discharge on 11/18/18. Pt continued presenting w/ anxiety, tremors, restlessness, and flushing. Pt is extremely anxious about leaving and going to treatment. Pt denies any S/I or H/I. PRN Clonidine x2, Seroquel x2, Vistaril, and Gabapentin were given and noted effective. Pts fluid intake was 3142ml and he slept for 7hrs. Last CIWA 11 @ 0500. Call light is within reach.
[2018-11-18 08:00] VITALS: BP 138/90
--- NOTE | 2018-11-18 08:05 | NUR ---
START OF SHIFT: Received Pt A/O X 4. He presents with anxious mood and congruent affect. Fine tremors noted to bilateral hands. CIWA 5. Valium taper completed. He reports mild anxiety about discharging to treatment today but states he is motivated to stay sober. Will medicate and continue with discharge process.
[2018-11-18 08:22] VITALS: BP 138/90
[2018-11-18] MEDS: MULTIVITAMINS,THERAPEUTIC TABLET PO SCH (08:22)
[2018-11-18] MEDS: FOLIC ACID 1 MG TABLET PO SCH (08:22)
[2018-11-18] MEDS: GABAPENTIN 300 MG CAPSULE PO SCH (08:22)
[2018-11-18] MEDS: THIAMINE HCL 100 MG TABLET PO SCH (08:22)
--- NOTE | 2018-11-18 11:55 | NUR ---
DISCHARGE: Pt is A/O X 4. He denies s/i and h/i. Belongings returned. Educated him on discharge instructions and medications. He reports motivation and enthusiasm toward recovery. DRUM PLATER escorted pt to lobby at 1045 where he was transported to [facility] and will be going to [facility] in [place].
== END 2018-11-18 10:45 | disposition other institution (70) | DRG 895 ==
LOC: SRC 20:00
PROVIDERS: ADMIT Family Medicine Addiction Medicine; ATTEND Family Medicine Addiction Medicine
PROC: HZ2ZZZZ Detoxification Services for Substance Abuse Treatment (ICD-10-PCS; principal; 2018-11-12)
PROC: HZ31ZZZ Individual Counseling for Substance Abuse Treatment, Behavioral (ICD-10-PCS; 2018-11-14)
PROC: HZ41ZZZ Group Counseling for Substance Abuse Treatment, Behavioral (ICD-10-PCS; 2018-11-14)
DX: F10.230 Alcohol dependence with withdrawal, uncomplicated (principal); G93.5 Compression of brain; F14.10 Cocaine abuse, uncomplicated; Y90.9 Presence of alcohol in blood, level not specified; Z87.728 Personal history of other specified (corrected) congenital malformations of nervous system and sense organs; Z81.3 Family history of other psychoactive substance abuse and dependence; F17.210 Nicotine dependence, cigarettes, uncomplicated; F41.1 Generalized anxiety disorder; E87.6 Hypokalemia; R74.0 Nonspecific elevation of levels of transaminase and lactic acid dehydrogenase [LDH]; F32.9 Major depressive disorder, single episode, unspecified; G43.909 Migraine, unspecified, not intractable, without status migrainosus; G47.00 Insomnia, unspecified; Z79.899 Other long term (current) drug therapy; S05.11XA Contusion of eyeball and orbital tissues, right eye, initial encounter; S40.021A Contusion of right upper arm, initial encounter; X58.XXXA Exposure to other specified factors, initial encounter; Y92.89 Other specified places as the place of occurrence of the external cause; D69.6 Thrombocytopenia, unspecified
CPT/HCPCS: 36415; 70030-TC; 80307; 80349; 80353; 83690; 83735; 84443; 85025; 86580; 86592; 86705; 86803; 87340; 87806; 93005; A4663; G0480; J3411